=== PATIENT | male | born 1970 | race Caucasian/White ===

== ENCOUNTER 2017-03-19 06:06 | Inpatient (IN) | payer OTHER ==
[2017-03-17 15:44] VITALS: BMI 43.5
[~2017-03-19 06:06] MED LIST: BUPIVACAINE HCL/PF 0.5% (5MG/ML) 10 ML VIAL IJ ONE
[2017-03-19] MEDS ORDERED: fentaNYL CITRATE 250 MCG/5 ML VIAL ONE (06:53)
[2017-03-19] MEDS ORDERED: PROPOFOL 20 ML ONE ×2 (06:54)
[2017-03-19] MEDS ORDERED: MIDAZOLAM HCL 2 MG/2 ML SINGLE DOSE VIAL ONE (06:55)
[2017-03-19] MEDS ORDERED: SUCCINYLCHOLINE CHLORIDE 200 MG/10 ML VIAL ONE (06:55)
[2017-03-19] MEDS ORDERED: ROCURONIUM BROMIDE 50 MG/5 ML VIAL ONE ×2 (06:55→09:08)
[2017-03-19] MEDS ORDERED: ePHEDrine SULFATE 50 MG/1 ML AMPULE ONE (06:56)
[2017-03-19] MEDS ORDERED: GLYCOPYRROLATE 0.2 MG/1 ML VIAL ONE (06:57)
[2017-03-19] MEDS ORDERED: DEXAMETHASONE SOD PHOSPHATE 4 MG/1 ML VIAL ONE ×2 (06:57)
[2017-03-19] MEDS ORDERED: ceFAZolin SODIUM 1 GM VIAL ONE (06:57)
[2017-03-19] MEDS ORDERED: NEOSTIGMINE METHYLSULFATE 0.5 MG/ML - 10 ML MDV ONE (06:57)
[2017-03-19] MEDS ORDERED: LIDOCAINE HCL/PF 2% SDV 5ML VIAL ONE (06:58)
[2017-03-19] MEDS ORDERED: DESFLURANE GAS 240 ML BOTTLE IH ONE (07:00)
[2017-03-19] MEDS ORDERED: BUPIVACAINE HCL/PF 0.5% (5MG/ML) 10 ML VIAL ONE (08:06)
--- NOTE | 2017-03-19 08:16 | HP ---
Admitting History and Physical - Admission Chief Complaint: Morbid obesity History of Present Illness: Presents for Robotic vertical sleeve gastrectomy, possible liver biopsy, upper endoscopy History Source: Patient Limitations to Obtaining History: No Limitations - Past Medical History Cardiovascular: Yes: HTN Pulmonary: Yes: Asthma Endocrine: Yes: Diabetes Mellitus - Smoking History Smoking history: Former smoker Have you smoked in the past 12 months: No If you are a former smoker, when did you quit?: 2003 - Alcohol/Substance Use Hx Alcohol Use: Yes (~2/week) Home Medications - Allergies Allergies/Adverse Reactions: Allergies Allergy/AdvReac Type Severity Reaction Status Date / Time No Known Allergies Allergy Verified 03/19/17 06:39 - Home Medications Home Medications: Ambulatory Orders Albuterol Sulfate Inhaler - [Ventolin Hfa Inhaler -] 1 - 2 inh PO QID PRN Aspirin [ASA -] 81 mg PO DAILY 03/17/17 Lisinopril 10 mg PO DAILY 03/17/17 Sitagliptin Phosphate [Januvia] 100 mg PO DAILY 03/17/17 Multivitamin [One Daily] 1 each PO DAILY 03/19/17 [place]-3/Dha/Epa/Fish Oil [[place] 3 500 Softgel] 1 each PO DAILY 03/19/17 Family Disease History - Family Disease History Family History: Denies Review of Systems - Review of Systems Constitutional: denies: Chills, Fever HENT: reports: No Symptoms Neck: reports: No Symptoms Cardiovascular: denies: Chest Pain Respiratory: denies: Cough Gastrointestinal: denies: Abdominal Pain Neurological: denies: Change in LOC Pain Intensity: 0 Physical Examination Vital Signs: Vital Signs Temperature 98.1 F 03/19/17 06:34 Pulse Rate 107 H 03/19/17 06:34 Respiratory Rate 20 03/19/17 06:34 Blood Pressure 136/89 03/19/17 06:34 O2 Sat by Pulse Oximetry (%) 95 03/19/17 06:34 Constitutional: Yes: Calm HENT: Yes: WNL Neck: Yes: Supple Cardiovascular: Yes: Regular Rate and Rhythm Respiratory: Yes: Regular Gastrointestinal: Yes: Soft, Abdomen, Obese. No: Tenderness Neurological: Yes: Alert, Oriented Problem List - Problems (1) Morbid obesity due to excess calories Code(s): E66.01 - MORBID (SEVERE) OBESITY DUE TO EXCESS CALORIES (2) BMI 40.0-44.9, adult Code(s): Z68.41 - BODY MASS INDEX (BMI) 40.0-44.9, ADULT (3) Hypertension Code(s): I10 - ESSENTIAL (PRIMARY) HYPERTENSION Qualifiers: Hypertension type: unspecified Qualified Code(s): I10 - Essential (primary ) hypertension (4) Diabetes mellitus Code(s): E11.9 - TYPE 2 DIABETES MELLITUS WITHOUT COMPLICATIONS Qualifiers: Diabetes mellitus type: type 2 (5) Asthma Code(s): J45.909 - UNSPECIFIED ASTHMA, UNCOMPLICATED Assessment/Plan Presents for Robotic vertical sleeve gastrectomy, possible liver biopsy, upper endoscopy
[2017-03-19] MEDS ORDERED: ceFAZolin SODIUM 1 GM VIAL IVPB ONE (08:55)
[2017-03-19] MEDS ORDERED: LABETALOL HCL 5 MG/1 ML (100MG/20 ML VIAL) ONE ×2 (09:18→09:20)
[2017-03-19] MEDS ORDERED: BUPIVACAINE HCL/PF 0.5% (5MG/ML) 10 ML VIAL IJ ONE (10:55)
--- NOTE | 2017-03-19 11:09 | OP ---
Operative Note - Note: Operative Date: 03/19/17 Pre-Operative Diagnosis: Morbid obesity Operation: Robotic vertical sleeve gastrectomy, wedge liver biopsy, upper endoscopy Post-Operative Diagnosis: Other (Morbid obesity, hepatomegaly) Estimated Blood Loss (mls): 30 Drains & Tubes with Location: 36 Fr Bougie Operative Report Dictated: Yes
[2017-03-19] MEDS ORDERED: ACETAMINOPHEN 1000 MG/100 ML VIAL (NON FORMULARY) IVPB SCH (11:15)
[2017-03-19] MEDS ORDERED: SODIUM CHLORIDE 1,000 ML IV SCH (11:15)
[2017-03-19] MEDS ORDERED: ALBUTEROL SO4 18 GM HFA INHALER IH PRN (11:17)
[2017-03-19] MEDS ORDERED: PROMETHAZINE HCL 25 MG/1 ML VIAL IVPUSH PRN (11:28)
[2017-03-19] MEDS ORDERED: ONDANSETRON 4 MG/2 ML VIAL IVPUSH PRN (11:28)
[2017-03-19] MEDS ORDERED: LACTATED RINGERS SOLUTION 1,000 ML IV SCH (11:30)
[2017-03-19 11:43] LABS: HEMATOCRIT 45.8 % (35.4-49); HEMOGLOBIN 15.1 GM/dL (11.7-16.9); MEAN CELL VOLUME 91.2 fl (80-96); MEAN PLT VOLUME 8.5 fl (7.5-11.1); PLATELET COUNT 220 K/MM3 (134-434); RBC 5.02 M/mm3 (4.00-5.60); RDW 14.2 % (11.9-15.9); WHITE BLOOD COUNT 8.4 K/mm3 (4.0-10.0)
--- NOTE | 2017-03-19 11:44 | SURG ---
Surgery Test Borer Helper Note Test Borer Helper: Allison Anne PA-C Date of Service: 03/19/17 Diagnosis: Morbid obesity Procedure: Robotic vertical sleeve gastrectomy, wedge liver biopsy, upper endoscopy I was present for the entirety of the operative procedure. For further detail, please refer to operative report. Visit type - Case Type Case Type: Scheduled Admission - Emergency Emergency Visit: No - New patient This patient is new to me today: Yes Date on this admission: 03/19/17
[2017-03-19] MEDS: METOCLOPRAMIDE HCL INJECTION 10 MG/2 ML VIAL IVPUSH SCH ×3 (11:50→23:11)
[2017-03-19] MEDS ORDERED: HYDROmorphone HCL CARPU-JECT 2 MG/1 ML DISP.SYRIN ONE ×2 (11:55→20:15)
[2017-03-19] MEDS ORDERED: PROMETHAZINE HCL 25 MG/1 ML VIAL IVPB PRN (11:57)
[2017-03-19] MEDS: HYDROmorphone HCL CARPU-JECT 1 MG/1 ML DISP.SYRIN IVPB PRN ×2 (12:00→20:16)
[2017-03-19 12:15] LABS: ALBUMIN 3.8 g/dl (3.4-5.0); ALK PHOS 87 U/L (45-117); ANION GAP 7 (8-16); BILIRUBIN,TOTAL 0.4 mg/dL (0.2-1.0); BLOOD UREA NITROGEN 19 mg/dL (7-18); CALCIUM 8.6 mg/dL (8.5-10.1); CHLORIDE 105 mmol/L (98-107); CO2 25 mmol/L (21-32); CREATININE 1.5 mg/dL (0.7-1.3); GLUCOSE,RANDOM 186 mg/dL (74-106); POTASSIUM 4.8 mmol/L (3.5-5.1); SGOT/AST 98 U/L (15-37); SGPT/ALT 142 U/L (12-78); SODIUM 137 mmol/L (136-145); TOT PROT 7.6 g/dl (6.4-8.2)
--- NOTE | 2017-03-19 14:46 | SPEC ---
DATE OF OPERATION: 03/19/2017 SURGEON: Marybeth House MD ASSOCIATE APPLICATION DEVELOPER: ANNE Zimmerman PREOPERATIVE DIAGNOSIS: Morbid obesity, body mass index 43.5, hypertension, diabetes, and asthma. POSTOPERATIVE DIAGNOSIS: Morbid obesity, body mass index 43.5, hypertension, diabetes, and asthma, as well as hepatomegaly. PROCEDURE: Robotic vertical sleeve gastrectomy, robotic wedge liver biopsy, and upper endoscopy. SPECIMEN: Greater curvature of the stomach and left lobe wedge liver biopsy. ESTIMATED BLOOD LOSS: 30 mL. DRAINS: None. ANESTHESIA: GET. BOUGIE: A 36-Yemeni. INDICATIONS: This is a 47-year-old gentleman who presented for weight loss options. After describing different options, he decided to proceed with a robotic vertical sleeve gastrectomy, possible liver biopsy, possible upper endoscopy. RISKS AND BENEFITS: After describing the different options for management of weight loss, the patient decided to proceed with a robotic laparoscopic, possible open vertical sleeve gastrectomy. The patient was seen by the respective subspecialities and cleared for surgery. The risks and benefits of the procedure were explained. These included bleeding, infection, hernia, MD, DVT, PE, injury to surrounding structures including the liver, colon, bowel, spleen, esophagus, vessel injury, nerve injury, weight regain, gastric leak, staple line leak, sleeve leak, obstruction, vitamin deficiency, hair loss, and as some of the possible complications. The patient understood and signed informed consent. DESCRIPTION OF PROCEDURE: The patient was placed supine on the operating room table. The patient underwent general endotracheal intubation. A Perez catheter was inserted by the nursing staff. The arms were brought out at 90 degrees and secured. A foot board was placed and the legs were secured laterally with padding. The abdomen was prepped and draped in the usual sterile fashion. A time-out was performed. An incision was made superior and to the left of the umbilicus. A Veress needle was inserted. Pneumoperitoneum was established. Subsequently the Veress needle was removed. An 8-mm robotic trocar was placed under direct visualization with the laparoscope. Inspection of the abdominal cavity was performed. An 8-mm trocar was then placed in the left abdominal wall approximately 6 to 7 cm to the left of the initial trocar. An 8-mm robotic trocar was then placed in the left abdominal wall approximately 6 to 7 cm to the left of the initial trocar. A 12-mm robotic trocar was then placed in the right abdominal wall approximately 6 to 7 cm to the right of the initial trocar and an 8-mm robotic trocar placed approximately 6 to 7 cm lateral to the 12-mm trocar. A stab wound was made in the subxiphoid area and a Mahi clamp inserted and removed to dilate the tract. A Eh liver retractor was inserted. The post was secured at the bedside by the nursing staff. The patient was placed in steep reverse Trendelenburg position and the He liver retractor was used to secure the liver towards the anterior abdominal wall. The robot was brought over the field and docked. Dissection was performed at the console. The pylorus was identified and 6 cm proximal to it the lesser sac was entered using the vessel sealer. From this point cephalad all lateral attachments to the greater curvature of the stomach including the short gastric vessels were ligated using the vessel sealer towards the gastrosplenic and gastrophrenic ligaments. Once this was done in its entirety, all tubes within the nasal or oropharyngeal cavity including a temperature probe was confirmed to be removed by Anesthesia. The bougie was then inserted by Anesthesia. Transection of the stomach was then begun staying adjacent to the bougie, but away from the angularis. Transection of the stomach was performed near the portion of the stomach where the lesser sac was entered. Two robotic green heather were used at this location. Robotic blue heather were then used for the remainder of the transection until the greater curvature of the stomach was fully transected. Again this was done staying close to the bougie. Care was taken to stay away from the angle of His cephalad. The staple line was then inspected. Hemostasis was identified. A leak test was then performed. The stomach was clamped distally to the staple line. Irrigation solution was placed in the left upper quadrant and air insufflated by Anesthesia into the sleeve. No leaks were identified and no obstruction was identified. This was done throughout the staple line. At this point, the irrigation solution was suctioned and again hemostasis noted. A wedge liver biopsy was then performed. A portion of the left lobe of the liver was identified and an edge of it grasped. Using electrocautery a wedge of this portion of the liver was excised. The specimen was removed from the abdominal cavity and sent off the field. Hemostasis of the biopsy site as attained using electrocautery. The robotic instruments were then removed. The robot was undocked from the operative field. The 12-mm robotic trocar was removed and the greater curvature specimen removed from this site using a sponge stick thompson. The specimen was inspected and the Veress needle inserted. The specimen insufflated adequately and no leak was identified. The staple line was noted to be straight and intact. A Les-Yadira device was then used to close the fascia with a 0 Vicryl suture at this site. The liver retractor was removed under direct visualization. Pneumoperitoneum was desufflated and the fascial suture was secured. Hemostasis was noted at all incision sites and Marcaine was injected at all incision sites. All incision sites were closed using 4-0 Biosyn. Sterile dressings were applied. The patient tolerated the procedure well and was transferred to the recovery room in stable condition with a Perez catheter intact. The patient was transferred to telemetry for further monitoring. In addition, an upper endoscopy was performed. The endoscope was inserted into the esophagus. GE junction and the entirety of the gastric pouch and staple line was inspected, and no leak or obstruction was noted. Hemostasis was noted. The stomach was suctioned and the endoscope removed. Patient tolerated the procedure well. He was transferred to the recovery room in stable condition. MARYBETH HOUSE M.D. [id number]
[2017-03-19] MEDS: ONDANSETRON 4 MG/2 ML VIAL IVPUSH SCH ×3 (16:01→23:11)
[2017-03-19] MEDS: ENOXAPARIN NA (PORCINE) 40 MG/0.4 ML DISP.SYRIN SQ SCH (21:35)
[2017-03-19] MEDS: FAMOTIDINE IV 20 MG/12 ML VIAL IVPB SCH (21:35)
[2017-03-20] MEDS: ONDANSETRON 4 MG/2 ML VIAL IVPUSH SCH ×6 (03:15→23:35)
[2017-03-20] MEDS ORDERED: HYDROmorphone HCL CARPU-JECT 2 MG/1 ML DISP.SYRIN ONE ×2 (05:01→10:39)
[2017-03-20] MEDS: HYDROmorphone HCL CARPU-JECT 1 MG/1 ML DISP.SYRIN IVPB PRN (05:18)
[2017-03-20] MEDS: METOCLOPRAMIDE HCL INJECTION 10 MG/2 ML VIAL IVPUSH SCH ×4 (05:18→23:35)
[2017-03-20 07:27] LABS: HEMATOCRIT 41.5 % (35.4-49); HEMOGLOBIN 13.4 GM/dL (11.7-16.9); MCH 29.6 pg (25.7-33.7); MCHC 32.3 g/dl (32.0-35.9); MEAN CELL VOLUME 91.7 fl (80-96); MEAN PLT VOLUME 9.1 fl (7.5-11.1); PLATELET COUNT 213 K/MM3 (134-434); RBC 4.53 M/mm3 (4.00-5.60); RDW 14.2 % (11.9-15.9); WHITE BLOOD COUNT 14.1 K/mm3 (4.0-10.0)
[2017-03-20 07:49] LABS: ALBUMIN 3.6 g/dl (3.4-5.0); ANION GAP 9 (8-16); BLOOD UREA NITROGEN 12 mg/dL (7-18); CALCIUM 8.4 mg/dL (8.5-10.1); CHLORIDE 102 mmol/L (98-107); CO2 26 mmol/L (21-32); GLUCOSE,RANDOM 163 mg/dL (74-106); POTASSIUM 4.1 mmol/L (3.5-5.1); SGOT/AST 145 U/L (15-37); SGPT/ALT 210 U/L (12-78); SODIUM 137 mmol/L (136-145)
[2017-03-20 07:51] LABS: ALK PHOS 60 U/L (45-117); BILIRUBIN,TOTAL 0.6 mg/dL (0.2-1.0); TOT PROT 7.1 g/dl (6.4-8.2)
[2017-03-20] MEDS: FAMOTIDINE IV 20 MG/12 ML VIAL IVPB SCH ×2 (10:40→22:24)
[2017-03-20] MEDS: HYDROmorphone HCL CARPU-JECT 2 MG/1 ML DISP.SYRIN IVPB PRN ×4 (10:41→20:27)
[2017-03-20] MEDS ORDERED: ACETAMINOPHEN 325 MG TABLET (FP) PO PRN (12:44)
[2017-03-20] MEDS ORDERED: oxyCODONE HCL 5 MG TABLET PO PRN (12:44)
[2017-03-20] MEDS ORDERED: SODIUM CHLORIDE 1,000 ML IV SCH (12:45)
--- NOTE | 2017-03-20 12:45 | PN ---
Progress Note (short form) - Note Progress Note: POD 1 Pain controlled Some nausea Vital Signs Period Temp Pulse Resp BP Sys/Raines Pulse Ox Last 24 Hr 97.0 F-98.7 F 87-99 14-18 100-157/67-98 96-98 Abd soft CBC,CMP WBC 14.1 K/mm3 (4.0-10.0) H D 03/20/17 05:05 RBC 4.53 M/mm3 (4.00-5.60) 03/20/17 05:05 Hgb 13.4 GM/dL (11.7-16.9) D 03/20/17 05:05 Hct 41.5 % (35.4-49) 03/20/17 05:05 MCV 91.7 fl (80-96) 03/20/17 05:05 MCH 29.6 pg (25.7-33.7) 03/20/17 05:05 MCHC 32.3 g/dl (32.0-35.9) 03/20/17 05:05 RDW 14.2 % (11.9-15.9) 03/20/17 05:05 Plt Count 213 K/MM3 (134-434) 03/20/17 05:05 MPV 9.1 fl (7.5-11.1) 03/20/17 05:05 Sodium 137 mmol/L (136-145) 03/20/17 06:00 Potassium 4.1 mmol/L (3.5-5.1) 03/20/17 06:00 Chloride 102 mmol/L (98-107) 03/20/17 06:00 Carbon Dioxide 26 mmol/L (21-32) 03/20/17 06:00 Anion Gap 9 (8-16) 03/20/17 06:00 BUN 12 mg/dL (7-18) D 03/20/17 06:00 Creatinine 1.0 mg/dL (0.7-1.3) D 03/20/17 06:00 Creat Clearance w eGFR > 60 (>60) 03/20/17 06:00 POC Glucometer 194 UNITS (80-120) 03/19/17 16:06 Random Glucose 163 mg/dL (74-106) H 03/20/17 06:00 Calcium 8.4 mg/dL (8.5-10.1) L 03/20/17 06:00 Total Bilirubin 0.6 mg/dL (0.2-1.0) D 03/20/17 06:00 AST 145 U/L (15-37) H D 03/20/17 06:00 ALT 210 U/L (12-78) H D 03/20/17 06:00 Alkaline Phosphatase 60 U/L (45-117) D 03/20/17 06:00 Total Protein 7.1 g/dl (6.4-8.2) 03/20/17 06:00 Albumin 3.6 g/dl (3.4-5.0) 03/20/17 06:00 UGI: no leak/obstruction Clears CBC in am Ambulation Problem List - Problems (1) Morbid obesity due to excess calories Code(s): E66.01 - MORBID (SEVERE) OBESITY DUE TO EXCESS CALORIES (2) BMI 40.0-44.9, adult Code(s): Z68.41 - BODY MASS INDEX (BMI) 40.0-44.9, ADULT (3) Hypertension Code(s): I10 - ESSENTIAL (PRIMARY) HYPERTENSION Qualifiers: Hypertension type: unspecified Qualified Code(s): I10 - Essential (primary ) hypertension (4) Diabetes mellitus Code(s): E11.9 - TYPE 2 DIABETES MELLITUS WITHOUT COMPLICATIONS Qualifiers: Diabetes mellitus type: type 2 (5) Asthma Code(s): J45.909 - UNSPECIFIED ASTHMA, UNCOMPLICATED
[2017-03-20] MEDS: LISINOPRIL 10 MG TABLET (FP) PO SCH (12:59)
[2017-03-20] MEDS: ENOXAPARIN NA (PORCINE) 40 MG/0.4 ML DISP.SYRIN SQ SCH ×2 (12:59→22:24)
[2017-03-20] MEDS ORDERED: PROMETHAZINE HCL 25 MG/1 ML VIAL IVPB PRN (13:38)
--- NOTE | 2017-03-20 13:38 | PN ---
Progress Note (short form) - Note Progress Note: ANESTHESIOLOGY POST-OP CHECK 47M s/p laparoscopic robotic sleeve gastrectomy under general anesthesia POD # 1. C/o gas pain and nausea, denies vomiting. Pain 8/10 brought down to 5/10 with pain meds and tolerable. Vital Signs Temperature 98.7 F 03/20/17 06:00 Pulse Rate 98 H 03/20/17 06:00 Respiratory Rate 18 03/20/17 06:00 Blood Pressure 100/67 03/20/17 06:00 O2 Sat by Pulse Oximetry (%) 98 03/19/17 21:00 Active Medications Acetaminophen (Tylenol -) 325 mg PO Q4H PRN PRN Reason: FEVER OR PAIN Albuterol Sulfate (Ventolin Hfa Inhaler -) 1 - 2 puff IH QID PRN PRN Reason: WHEEZING Enoxaparin Sodium (Lovenox -) 40 mg SQ BID [facility] Last Admin: 03/20/17 12:59 Dose: 40 mg Hydromorphone HCl (Dilaudid Injection -) 1 mg IVPB Q3H PRN PRN Reason: PAIN SCALE 6-10 Last Admin: 03/20/17 13:07 Dose: 1 mg Famotidine (Pepcid 20 Mg/12 Ml Push) 20 mg in 12 mls @ 100 mls/hr IVPB BID [facility] Last Admin: 03/20/17 10:40 Dose: 100 mls/hr Sodium Chloride (Normal Saline -) 1,000 mls @ 75 mls/hr IV ASDIR [facility] Last Admin: 03/20/17 12:59 Dose: 75 mls/hr Lisinopril (Prinivil) 10 mg PO DAILY [facility] Last Admin: 03/20/17 12:59 Dose: 10 mg Metoclopramide HCl (Reglan Injection -) 10 mg IVPUSH Q6H [facility] Last Admin: 03/20/17 11:34 Dose: 10 mg Ondansetron HCl (Zofran Injection) 4 mg IVPUSH Q4H [facility] Last Admin: 03/20/17 11:34 Dose: 4 mg Oxycodone HCl (Roxicodone -) 5 mg PO Q4H PRN PRN Reason: PAIN SCALE 1-5 Gen: awake, alert No apparent anesthesia complications. Pain controlled. Trial phenergan for nausea. Continue management as per primary team.
[2017-03-20] MEDS ORDERED: PT OWN MED DRAWER 7, Y5N ONE (21:26)
[2017-03-21] MEDS: HYDROmorphone HCL CARPU-JECT 2 MG/1 ML DISP.SYRIN IVPB PRN ×3 (00:50→08:09)
[2017-03-21] MEDS: ONDANSETRON 4 MG/2 ML VIAL IVPUSH SCH ×3 (03:08→11:29)
[2017-03-21] MEDS: METOCLOPRAMIDE HCL INJECTION 10 MG/2 ML VIAL IVPUSH SCH ×2 (05:56→11:30)
[2017-03-21 05:58] VITALS: PULSE 102; TEMP 98.3
[2017-03-21 06:47] LABS: BASO % 0.8 % (0-2.0); EOS % 0.5 % (0-4.5); HEMATOCRIT 34.6 % (35.4-49); HEMOGLOBIN 11.8 GM/dL (11.7-16.9); LYMPH % 14.7 % (8-40); MCH 31.3 pg (25.7-33.7); MCHC 34.2 g/dl (32.0-35.9); MEAN CELL VOLUME 91.8 fl (80-96); MEAN PLT VOLUME 8.8 fl (7.5-11.1); MONO % 15.2 % (3.8-10.2); NEUT % 68.8 % (42.8-82.8); PLATELET COUNT 193 K/MM3 (134-434); RBC 3.77 M/mm3 (4.00-5.60); RDW 14.1 % (11.9-15.9); WHITE BLOOD COUNT 9.6 K/mm3 (4.0-10.0)
[2017-03-21] MEDS ORDERED: PT OWN MED DRAWER 7, Y5N ONE ×2 (07:54→09:48)
[2017-03-21] MEDS: LISINOPRIL 10 MG TABLET (FP) PO SCH (10:26)
[2017-03-21 11:28] VITALS: BP 113/63
[2017-03-21] MEDS: FAMOTIDINE IV 20 MG/12 ML VIAL IVPB SCH (11:29)
--- NOTE | 2017-03-23 15:14 | PATH ---
Surgical Pathology Report Patient Name: LAILA JOHNSTON [facility]. Rec. #: [id number] /Age/Gender: 1970 (Age: 47) / M Account: [id number] Location: 4 W TELEMETRY U Taken: 03/19/2017 Received: 03/19/2017 Reported: 03/23/2017 Physicians: Chapincito House M.D. Specimen(s) Received A: GREATER CURVATURE STOMACH B: LIVER BIOPSY Clinical History A Morbid obesity Final Diagnosis A. STOMACH, GREATER CURVATURE, ROBOTIC VERTICAL SLEEVE GASTRECTOMY: PORTION OF STOMACH WITH MILD CHRONIC GASTRITIS. IMMUNOHISTOCHEMICAL STAIN FOR H. PYLORI IS NEGATIVE. B. LIVER, BIOPSY: STEATOHEPATITIS, MILD; MODERATE STEATOSIS (~40%). 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 SEE COMMENT. Comment: Biopsy is subcapsular with areas of thermal artifact. The liver parenchyma demonstrates moderate mixed macro and macrovesicular steatosis (~40%). Focal lymphocytic infiltrate is seen in portal tracts. No interface activity is present. No plasmacytosis is present. No significant bile injury is seen. No granulomas are present. Focal hepatocyte ballooning is noted. No definitive Lexie hyaline is identified. The trichrome stain highlights mild perivenular, mild perisinusoidal, portal and focal mild periportal fibrosis. Mild focal increase in iron seen within scattered hepatocytes and Kupffer cells highlighted by Iron special stain. Overall, findings show mild steatohepatitis and moderate steatosis; stage 1 of 4 (Brunt). Etiologies include alcohol and alcoholic liver injury including metabolic conditions, drug or toxin injury. Suggest clinical and serologic correlation. Electronically Signed Caryl Wallace M.D. Gross Description A. Received in formalin, labeled "greater curvature of stomach," is a 249 gram, 28.5 x 5.5 x 4.0 cm. portion of stomach with a stapled margin of resection. The serosa is rodrigues-solano with minimal attached fat. The mucosa is rodrigues-pink with normal folds. No mucosal masses are identified. Mortgage Lender sections are submitted in one cassette. B. Received in formalin labeled "liver biopsy," is a 1.6 x 1.2 x 0.3 cm portion of rodrigues, friable liver tissue. The specimen is submitted in toto in one cassette. DL/03/19/2017 saudi/03/19/2017
== END 2017-03-21 12:08 | disposition home or self-care (01) | DRG 403 ==
LOC: JSAMEDAYSX 06:06 → EDSTATUS 08:00 → J4W 13:50
PROVIDERS: ADMIT Surgery; ATTEND Surgery
PROC: 0DB64Z3 Excision of Stomach, Percutaneous Endoscopic Approach, Vertical (ICD-10-PCS; principal; 2017-03-19 08:00)
PROC: 0FB24ZX Excision of Left Lobe Liver, Percutaneous Endoscopic Approach, Diagnostic (ICD-10-PCS; 2017-03-19 08:00)
PROC: 8E0W8CZ Robotic Assisted Procedure of Trunk Region, Via Natural or Artificial Opening Endoscopic (ICD-10-PCS; 2017-03-19 08:00)
DX: E66.01 Morbid (severe) obesity due to excess calories (principal); Z68.41 Body mass index [BMI] 40.0-44.9, adult; I10 Essential (primary) hypertension; E11.9 Type 2 diabetes mellitus without complications; J45.909 Unspecified asthma, uncomplicated; Z87.891 Personal history of nicotine dependence; R16.0 Hepatomegaly, not elsewhere classified
CPT/HCPCS: 36415; 74241-TC; 80053; 85025; 85027; 88305-TC; 94760